=== PATIENT | male | born 1935 | race Caucasian/White ===

== ENCOUNTER 2022-03-12 17:40 | Inpatient (IN) | payer MEDICARE, OTHER ==
[~2022-03-12] VITALS: Ht 170.2 cm; Wt 50.1 kg
[2022-03-12] VITALS (187 sets, daily range): BP systolic 109; BP diastolic 60; PULSE 96; TEMP 98.2; O2SAT 74–100
[~2022-03-12 17:40] MED LIST: ALBUTEROL1.25 MG/3 IH; ASPIRIN 32325 MG/TAB PO; ASPIRIN 81M81 MG/TA2 PO; ASPIRIN E.C. 8181 MG PO; CALCIUM + D 6001 TAB PO; CALCIUM 600-D 61 TAB PO; CALTRATE 600 +1 TAB PO; CENTRUM SILVER1 TA1 PO; CEROVITE SENIOR1 TA1 PO; CIPRO 500MG TA500 MG PO; COMBIVENT INH14.7 GM IH; GUAIFENESI100 MG/51 PO; HYTRIN2 M1 PO; ISOSORBIDE MONO30 MG PO; LISINOPRIL HCTZ1 TAB PO; LISINOPRIL/HCTZ1 TA2 PO; LISINOPRIL10 MG PO; MUCUS RELIEF200 MG PO; MUCUSRELF400T PO; NATURE'S BLEND400 IU PO; NITROQUICK0.4 MG SL; NITROSTAT0.4 MG/TAB SL; NIZORAL2% TP; PLAVIX 75MG TAB75 MG PO; PRINZIDE 25 MG-1 TAB PO; PROSCAR 5MG5 MG PO; PROSCAR PO; PULMICORT0.5 MG/21 IH; PULMICORT180 MCG/A1 IH; SEREVENT IH; SEREVENT21 MCG/ACT IH; SINGULAIR 110 MG/TAB PO; SINGULAIR10 MG PO; SPIRIVA INH IH; SPIRIVA18 MCG IH; TERAZOSIN HCL PO; THEO-24 20200 MG/CAP PO; THEODUR 200MG PO; TOPROL XL 25MG25 MG PO; TRUSOPT 5 ML5 ML OU; VITAMIN C500 MG PO; VITAMIN D 1001000 IU PO; VITAMIN E-400200 IU PO; VITAMIN E1000 U/CAP PO; VITAMINC500CH PO; XALATAN EYE DROPS OU; XANAX .25M0.25 MG/TA PO; XANAX0.25 MG PO; XOPENEX 1.1.25 MG/3 IH; XOPENEX 3 ML3 M1 IH; XOPENEX0.63 MG/3 IH; ZOCOR 20MG20 MG PO; ZOCOR20 MG PO; ZOLOFT 50MG50 MG PO
--- NOTE | 2022-03-12 18:00 | NUR ---
Recieved a limited report from Kel CANSECO of [facility]. Nurse stated that PT ETA 1919.
[2022-03-12 19:49] LABS: ARTERIAL BLD GAS O2 SATURATION 96.1 % (92-100); ARTERIAL BLOOD GAS BASE EXCESS 7.3 (-2-2); ARTERIAL BLOOD GAS HCO3 33.3 meq/L (22-26); ARTERIAL BLOOD GAS PCO2 53.9 mmHg (35-45); ARTERIAL BLOOD GAS PO2 82.3 mmHg (80-100); ARTERIAL BLOOD GAS pH 7.41 (7.35-7.45)
[2022-03-12] MEDS ORDERED: YUPELRI175 MCG/3 IH (20:18)
[2022-03-12] MEDS ORDERED: XANAX 0.5MG0.5 MG PO (20:19)
[2022-03-12] MEDS ORDERED: CALCIUM 600MG+D1 TAB PO (20:19)
[2022-03-12] MEDS ORDERED: XALATAN EYE DROPS OU (20:19)
[2022-03-12] MEDS ORDERED: TRUSOPT OCUMETE10 ML OU (20:19)
[2022-03-12] MEDS ORDERED: PROSCAR 5MG5 MG PO (20:20)
[2022-03-12] MEDS ORDERED: THEO-24 20200 MG/CAP PO (20:20)
[2022-03-12] MEDS ORDERED: ZOLOFT 50MG50 MG PO (20:20)
[2022-03-12] MEDS ORDERED: MUCUS RELIEF200 MG PO (20:20)
[2022-03-12] MEDS ORDERED: HYTRIN 2MG CAPSU2 MG PO (20:21)
[2022-03-12] MEDS ORDERED: BROVANA15 MCG/2 M IH (20:21)
[2022-03-12] MEDS ORDERED: HCTZ12.5TAB PO (20:21)
[2022-03-12] MEDS ORDERED: SINGULAIR 110 MG/TAB PO (20:21)
[2022-03-12] MEDS ORDERED: VITAMIN D31000 I1 PO (20:21)
[2022-03-12] MEDS ORDERED: RANEXA 500MG T500 MG PO (20:22)
[2022-03-12] MEDS ORDERED: NORVASC 5MG5 MG/TAB PO (20:22)
[2022-03-12] MEDS ORDERED: LIPITOR20 MG PO (20:22)
[2022-03-12] MEDS ORDERED: PULMICORT0.5 MG/2 M IH (20:22)
[2022-03-12] MEDS ORDERED: REMERON 15M15 MG/TA1 PO (20:23)
[2022-03-12] MEDS ORDERED: ASPIRIN 81M81 MG/TA2 PO (20:23)
[2022-03-12] MEDS ORDERED: NITROSTAT0.4 MG/TAB SL (20:25)
[2022-03-12] MEDS ORDERED: PRESERVISION1 SGL PO (20:25)
[2022-03-13] VITALS (1072 sets, daily range): BP systolic 104–141; BP diastolic 59–69; PULSE 85–108; TEMP 97.5–98; O2SAT 48–100
--- NOTE | 2022-03-13 07:44 | NUR ---
US in PT room for ECHO.
--- NOTE | 2022-03-13 08:30 | NUR ---
PT PLACED ON 4 LPM OXYMASK. PT WILL HAVE A BREAK FROM BIPAP 2 HR ON 2 HR OFF THROUGHOUT THE DAY. DISCUSSED WITH RT. PT WILL BE PLACED ON BIPAP THROUGHOUT THE NIGHT 7 PM-7AM.
--- NOTE | 2022-03-13 10:19 | NUR ---
Initial visit; Patient thanked Income Tax Administrator for looking in on him, joking and offering God's blessings as he goes home.
--- NOTE | 2022-03-13 10:24 | NUR ---
Initial visit; Patient thanked Chiller Hand for stopping in and offering him God's blessings and keeping him in her prayers.
--- NOTE | 2022-03-13 10:54 | NUR ---
pulley worker met with patient to keep intake. Patient is unable to answer most of the intake questions stating " my would know more about that stuff". Phone call made to the patients Franci ([phone]). Franci states that she and the patient have always led an active life and were avid golf players. Franci states that within the past few years the patient has been declining. Patient is now at the point of needing help with all of his ADL's from his . She states that he is able to ambulate through the home ok but doesn't really ever leave. Franci states the patient spending much of his time sleeping in his recliner. Franci states that the patient is on continuous oxygen at home which is supplied [facility]. PCP is Dr. Alvarez but Franci states that he hasn't seen him in a "long time". They utilizes [facility] for medication needs. Franci states that the patient does have a [facility] established listing her as the primary agent and their son Rikki ([phone]) as the secondary agent. Franci states that she is at the point where she cannot care for the patient at home anymore. She and their son have been talking to both [facility] in [place] and [facility] in [place] for [facility] prior to this. She states that [facility] at this time is fixing the roof on parts of the building and they told her they do not have a room at this time. When asked, her preferred choice is [place] with [facility] being the second choice. I informed Franci that i would send off the patients information to each facility.
[2022-03-13 11:54] LABS: MEAN CELL VOLUME 104 fl (80.0-100.0); MEAN CORPUSCULAR HEMOGLOBIN 33 pg (27-31); MEAN CORPUSCULAR HGB CONC 32 g/dl (33.0-37.0); MEAN PLATELET VOLUME 11.3 fl (7.4-10.4); PLATELET COUNT 162 K/mm3 (130-400); RED BLOOD COUNT 3.01 M/mm3 (4.20-5.60); REDCELL DISTRIBUTION WIDTH-CV 13.2 % (11.5-14.5)
[2022-03-13 12:01] LABS: HEMATOCRIT 31.3 % (42.0-52.0)
[2022-03-13 12:07] LABS: BAND 7 % (0-10); LYMPHOCYTE 53 % (20.0-51.0); NEUTROPHILS 40 % (42.0-75.2); PLATELET ESTIMATE NORMAL (NORMAL)
[2022-03-13 12:20] LABS: ALBUMIN 2.9 gm/dL (3.4-4.8); BILIRUBIN,TOTAL 0.4 mg/dL (0.2-1.2); CALCIUM 8.6 mg/dL (8.4-10.2); CREATININE, serum 0.7 mg/dL (0.72-1.25); POTASSIUM 4.1 mmol/L (3.5-4.5); TOTAL PROTEIN 5.6 gm/dL (6.2-8.1)
--- NOTE | 2022-03-13 17:00 | NUR ---
I called and discussed patients care, explained that patient is not wanting to wear bi-pap and is otherwise on his baseline O2 requirments of 2L. and is stable, asked if he would be ok getting patient to the Medical floor as he is not receiving any treatments that could not be provided on the Medical unit, agreed that if a the need would arise for an open ICU bed he was ok with transferring this patient up to Medical unit, I then called and had the same conversation and explained that was ok with a transfer to Medical floor
--- NOTE | 2022-03-13 18:24 | NUR ---
I called and notified patients that he would be transferred to the Medical floor room 355 on the morning of 03/14/22
--- NOTE | 2022-03-13 20:52 | NUR ---
TX GIVEN VIA MASK, TOLERATED WELL. PULMICORT AND PERFOROMIST GIVEN FIRST, FOLLOWED BY [facility]. PT REQUESTED I DO NOT WAKE HIM IF SLEEPING AT HIS 0200 TX TIME.
[2022-03-14] VITALS (328 sets, daily range): BP systolic 101–141; BP diastolic 37–68; PULSE 80–107; TEMP 97.3–98.1; O2SAT 83–100
--- NOTE | 2022-03-14 01:23 | NUR ---
TX GIVEN INLINE WITH BIPAP, TOLERATED WELL.
[2022-03-14 05:05] LABS: ARTERIAL BLD GAS O2 SATURATION 94.8 % (92-100); ARTERIAL BLD GAS TCO2 CT 33.1; ARTERIAL BLOOD GAS BASE EXCESS 5.9 (-2-2); ARTERIAL BLOOD GAS HCO3 31.6 meq/L (22-26); ARTERIAL BLOOD GAS PCO2 51.4 mmHg (35-45); ARTERIAL BLOOD GAS PO2 77.3 mmHg (80-100); ARTERIAL BLOOD GAS pH 7.41 (7.35-7.45)
[2022-03-14 05:32] LABS: BASO % 0.3 % (0.0-2.0); GRAN # 6.5 K/mm3 (1.4-6.5); GRAN % 59.9 % (42.2-75.2); LYMPH # 4.1 K/mm3 (1.2-3.4); MEAN CELL VOLUME 102 fl (80.0-100.0); MEAN CORPUSCULAR HEMOGLOBIN 33 pg (27-31); MEAN CORPUSCULAR HGB CONC 32 g/dl (33.0-37.0); MEAN PLATELET VOLUME 11.6 fl (7.4-10.4); MONO # 0.1 K/mm3 (0.1-0.6); MONO % 1.2 % (1.7-9.3); PLATELET COUNT 163 K/mm3 (130-400); RED BLOOD COUNT 3.05 M/mm3 (4.20-5.60); REDCELL DISTRIBUTION WIDTH-CV 13.2 % (11.5-14.5)
[2022-03-14 05:39] LABS: HEMATOCRIT 31.1 % (42.0-52.0)
--- NOTE | 2022-03-14 05:46 | NUR ---
0504 CALLED REPORT TO HARLEEN ROLAND ON MEDICAL FLOOR 0540 LABS OBTAINED AND SENT TO LAB, PATIENT AND ALL BELONGING TRANSEFERRED TO ROOM 355 INCLUDING A PAIR OF PANTS WITH BELT ATTACHED AND A PAIR OF SHOES AND A BLACK BAG WITH ELECTRIC SHAVER AND MANUAL TOOTHBRUSH ALONG WITH PAPERS IN AN ENVELOPE.
[2022-03-14 05:51] LABS: CALCIUM 8.7 mg/dL (8.4-10.2); CREATININE, serum 0.67 mg/dL (0.72-1.25); POTASSIUM 4.3 mmol/L (3.5-4.5)
--- NOTE | 2022-03-14 05:53 | NUR ---
Patient arrived to the medical unit, alert but not oriented, follows comands. Tachycardic. He was put at 2 L NC as his baseline but O2 sat in the lowers 80's. Increased to 3 L. Now at 92%. Telemetry in place. Multiple bruises in arms. Edema in BLE, ankles. 2 +. Right now resting.
--- NOTE | 2022-03-14 10:55 | NUR ---
PATIENT ORIENTED TO SELF, NOT TO LOCATION AND SITUATION. VERY FRAIL AND THIN. GROSS HEMATURIA ON URINATION. EXPRESSED DIFFICULTY URINATING. PASSING ALMA RED BLOOD WITH CLOTS. BLADDER SCAN REVEALED <75 AFTER VOID. SKIN TEAR ABOVE LEFT ELBOW, PENG. STAGE I ON SACRUM, STAGE 2 ON COCCYX. INITIATED Q2 TURNS, WEDGING. LOTION AND BACK RUB GIVEN ON ASSESSMENT. STOOD AT BEDSIDE WITH 2 ASSIST, INCREASED WORK OF BREATHING, ACCESSORY MUSCLE USE NEEDED. PALATIVE CONSULT BEING CONSIDERED. THORACENTSIS ON HOLD, FOR PALATIVE CONVERSATION.
--- NOTE | 2022-03-14 11:19 | NUR ---
Received requests for consult on this patient. No order placed yet but did call patient's , Franci; she stated she and her son plan to be in around 1300 today. Notified SW and care team of planned arrival.
--- NOTE | 2022-03-14 15:36 | NUR ---
Met with patient, his Franci, and their son at bedside. We discussed patient condition and that he wants a dignified . Family expressed patient would also want to be a DNR and that comfort care would be appropriate. NORMA Arizmendi, hospitalist team, and primary nurses entered and continued conversation about what hospice means and the types of medication available to provide comfort. Kyleigh and the patient's family then went to my office and we continued our discussion on where hospice could take place. Patient's states that [facility], [place] would be easy for her to get to for visiting. She has no preference at this time for hospice agency. [facility] hospice list for [place] provided for family and SW stated they would f/u once the patient was accepted at the nursing facility. Family thankful for our help and feel this is the best decision for the patient. DNR and comfort care orders placed by hospitalist team.
--- NOTE | 2022-03-14 16:07 | NUR ---
mold loft worker attended rounding with physician. Also in attendance is the palliative care RN Marta, the patients RN, the patients and son. Patient and family are in agreement to move towards comfort care. All questions answered by physician. After rounding HARLEEN Lozano and myself met with the patients and son to discuss where they would like to get hospice. Options provided are the [facility], home with hospice or a LTC with hospice. Patients is quick to say that home is not an option. She reports that she would like the patient to go to [facility] in [place] and have a hospice agency come in. Educated both the and his son that we would have EMS transfer the patient. Patients clinical updates faxed to [facility]. All questions answered. Contacted made with NORMA Medrano at [facility]. Update to the POC and that the patient is now comfort care provided. Marcela states that the DON has to review the updates from today but that she would not be back in until Thursday. Earliest they can take is Thursday. Informed her that I had gone over pricing with the family and that the patients verbalized her understanding. Marcela states that they are in contract with [facility]. Clinical referral faxed to [facility]. Patients and son contacted to inform of the above information.
--- NOTE | 2022-03-14 18:23 | NUR ---
PATIENT FAMILY CHANGED STATUS TO COMFORT CARE TODAY AFTER FAMILY MEETING. PATIENT REQUIRED TWO DOSES ON THIS SHIFT OF HEATH AND IV ATIVAN FOR WORK OF BREATHING, SHORTNESS OF BREATH AND ANXIETY. PATIENT RESTING COMFORTABLY. COMFORT BLANKET PROVIDED. PATIENT SHAVED, AND GIVEN CHOCOLATE ICE CREAM FOR SNACK. PATIENT PLESANTLY CONFUSED. WILL CALL OUT VOCALLY FOR ASSISTANCE, GETS CONFUSED TO LOCATION AND SITUATION. PLAN TO DC TO HOSPICE HOUSE IN [place] TOMORROW. PER DR. HAGAN, HOLD EVENING AND OVERNIGHT MEDS TILL CONFIRMATION FROM FAMILY IN AM ROUNDS.
--- NOTE | 2022-03-14 18:43 | NUR ---
ASKED DR. HAGAN ABOUT COMPLETION MANAGER MEDICATIONS AND COMFORT CARE STATUS. ORDERED TO HOLD NIGHT TIME MEDICATIONS, HOLD PLACED ON DR. HAGAN BEHALF.
--- NOTE | 2022-03-14 23:01 | NUR ---
Patient assessed around 2004. Patient drowsy. On comfort cares. No outward s/sx of pain or discomfort noted. Respirations unlabored. Does have short periods of apnea. In bed with call light within reach. Bed alarm on.
--- NOTE | 2022-03-15 05:58 | NUR ---
Patient given PRN Morphine once this shift for s/sx of pain: had been moaning. Patient repositioned during the night. Incontinent of urine, no hematuria noted. Perineal hygiene care provided. In bed with call light within reach. Bed alarm on.
--- NOTE | 2022-03-15 08:40 | NUR ---
THE PATIENT IS CURRENTLY SATURATING AT 37%, CONTACTED THE PATIENT'S PEPE WHO PLANS TO COME TO THE HOSPITAL SOON.
--- NOTE | 2022-03-15 09:17 | NUR ---
Patient in bed had requested me to get up, I comforted patient by placing cool towel on forehead, holding his hand and talking with him. Patient breathing becoming more distant at this time.
--- NOTE | 2022-03-15 12:39 | NUR ---
Mixing Operator called crown ironer to offer prayer for patient. Mixing Operator visited with family and offered support.
--- NOTE | 2022-03-15 14:00 | NUR ---
The patient is sleeping comfortably, pt was given medication to help with gasping/air hunger. No other concerns at this time.
--- NOTE | 2022-03-15 15:18 | NUR ---
NORMA notified patients son Rikki that the patient has taken a decline through the night. Rikki states that he and his mother will arrive to the hospital around noon to visit. arrives to unit to give the patient his last rites. Patients son and arrives to unit. Update provided to the family and emotional support given. Franci states that the patients wishes were to be cremated and preferred home is: [facility] in [place]. Patients RN provided information.
--- NOTE | 2022-03-15 17:08 | NUR ---
PCT notified Nurse that the patient did not appear to be breathing. This RN, along with Surekha RN verified the patient had no breath sounds and no heart tones.
--- NOTE | 2022-03-15 17:10 | NUR ---
Notified Dr. Ángel Godinez of the patient's and the two RN verification at 1708. Doctor states he will come assess for himself.
--- NOTE | 2022-03-15 17:10 | NUR ---
Notified Francialeksey Worrell, the patient's that the patient had . She thanked us for our care of her .
--- NOTE | 2022-03-15 17:15 | NUR ---
Notified Franci Worrell of patient of the patient's . She thanked us for our care of him and understood she would hear from the home.
--- NOTE | 2022-03-15 17:20 | NUR ---
Dr. Godinez assesses patient and verifies .
--- NOTE | 2022-03-15 17:57 | NUR ---
GAN notified of patient (referral number [id number]) patient not a candidate, may release body to home. Family has chosen [facility] in [place], [place] [phone], they have been call at this time.
--- NOTE | 2022-03-16 04:27 | NUR ---
1908 HOME HERE TO GET PT AND BELONGINGS.
== END 2022-03-15 17:08 | disposition expired | DRG 189 ==
LOC: ICU 17:40 → MEDICAL 03-14 05:46
PROVIDERS: Internal Medicine Pulmonary Disease; Nurse Practitioner Family; ADMIT Student in an Organized Health Care Education/Training Program
PROC: 5A09457 Assistance with Respiratory Ventilation, 24-96 Consecutive Hours, Continuous Positive Airway Pressure (ICD-10-PCS; principal; 2022-03-12)
DX: J96.22 Acute and chronic respiratory failure with hypercapnia (principal); J96.21 Acute and chronic respiratory failure with hypoxia; I11.0 Hypertensive heart disease with heart failure; I50.9 Heart failure, unspecified; I25.10 Atherosclerotic heart disease of native coronary artery without angina pectoris; I44.0 Atrioventricular block, first degree; I73.9 Peripheral vascular disease, unspecified; J44.9 Chronic obstructive pulmonary disease, unspecified; N40.0 Benign prostatic hyperplasia without lower urinary tract symptoms; Z79.82 Long term (current) use of aspirin; Z95.5 Presence of coronary angioplasty implant and graft; Z95.820 Peripheral vascular angioplasty status with implants and grafts; Z87.891 Personal history of nicotine dependence
CPT/HCPCS: 99223-AI; 99232-AI; 99233-AI; J0456; J0696; J1650; J2060; J2920; J7030; J7050